=== PATIENT | female | born 1945 | race Caucasian/White ===

== ENCOUNTER → 2019-07-08 06:21 | Outpatient (CLI) | payer MEDICARE, OTHER, SELFPAY ==
--- NOTE | 2019-07-08 06:40 | MRI_ITS ---
STUDY: MRI LUMBAR SPINE WITHOUT CONTRAST REASON FOR EXAM: Female, 74 years old. Low back pain radiating to the right leg. TECHNIQUE: Standardized fat and water weighted pulse sequences were obtained in the sagittal and axial planes. Coronal T1-weighted imaging was performed. COMPARISON: None. FINDINGS: Exaggerated lumbar lordosis. Levoscoliosis. Conus medullaris terminates normally at the T12-L1 level. Transitional lumbosacral anatomy with rudimentary disc at the S1-2 level (for the sake of labeling). No acute fracture, dislocation or osseous destruction. T11 hemangioma. L4 hemangioma. T12-L1 (sagittal images only): Normal endplates. Disc desiccation. Facet joint arthrosis. Normal central canal and bilateral lateral recesses. Normal bilateral intervertebral neural foramina. L1-2 (sagittal images only): Moderate endplate spondylosis. Disc bulge/osteophyte complex with mild central canal narrowing. Facet joint arthrosis. Normal bilateral lateral recesses. Neural femoral narrowing without impingement. Grade 1 spondylolisthesis. L2-3: Moderate endplate spondylosis. Disc bulge/osteophyte complex with mild central canal narrowing. Facet joint arthrosis. Right lateral recess narrowing without impingement. Neural foramina narrowing without impingement. Grade 1 spondylolisthesis. L3-4: Moderate end plate spondylosis. Minimal posterior osseous ridging without central canal narrowing. Facet joint arthrosis. Normal central canal and bilateral lateral recesses. Neural foraminal narrowing without impingement. L4-5: Moderate endplate spondylosis with degenerative/reactive edema. Disc bulge/uncovering with severe central canal narrowing. Facet joint arthrosis. Bilateral lateral recess narrowing with impingement. Neural foramina narrowing with impingement on the right. Vacuum phenomenon. L5-S1: Mild/moderate endplate spondylosis. Disc bulge/uncovering with moderate/severe central canal narrowing. Facet joint arthrosis. Bilateral lateral recess narrowing with impingement, left greater than right. Neural foraminal narrowing with impingement on the left. Vacuum phenomenon. Paraspinal muscle atrophy. Normal aorta. Normal retroperitoneum. MRI/Spine Lumbar (Routine) IMPRESSION: Extensive multilevel intervertebral disc disease with severe central canal narrowing at L4-5 and L5-S1 Multilevel neuroforamina narrowing with impingement of the right L4 and left L5 nerve roots Multilevel lateral recess narrowing with impingement of the bilateral descending L5 and S1 nerve roots Multilevel moderate/severe osteoarthritis with endplate spondylosis and facet joint arthrosis Multilevel grade 1 spondylolisthesis with exaggerated lumbar lordosis and levoscoliosis Transitional lumbosacral anatomy with rudimentary S1-2 disc Electronically Signed: Cory Wilson DO at 10:57 EDT Tel , Service support ,
== END ==
PROVIDERS: Family Provider Physician Assistant; PCP Physician Assistant; Referring Provider Physician Assistant; Visit Provider Physician Assistant
DX: M54.40 Lumbago with sciatica, unspecified side (principal); R20.0 Anesthesia of skin
CPT/HCPCS: 72148

== ENCOUNTER → 2019-10-22 10:05 | Outpatient (CLI) | payer MEDICARE, OTHER, SELFPAY ==
--- NOTE | 2019-10-22 10:20 | MRI_ITS ---
STUDY: MRI CERVICAL SPINE WITHOUT CONTRAST REASON FOR EXAM: Female, 74 years old. arthritis with myelopathy -- pre op scan for lumbar surgery, no neck pain or upper extremity radicuopathy, pain low back and rt leg. TECHNIQUE: Standardized fat and water weighted pulse sequences were obtained in the sagittal and axial planes. COMPARISON: None FINDINGS: Normal foramen magnum and brainstem-cervical cord junction. Normal craniovertebral junction. Normal cervical lordosis. C2-3: There is severe disc space narrowing and endplates spondylosis. There is mild disc osteophyte complex and dorsal ligamentous buckling with mild central canal stenosis. Uncovertebral and facet arthropathy with minimal right and mild left foraminal stenosis C3-4: There is moderate disc space narrowing and endplates spondylosis. Minimal retrolisthesis with disc osteophyte complex and dorsal ligamentous buckling with moderate central canal stenosis. Uncovertebral facet arthropathy with moderate right and moderate left foraminal stenosis C4-5: There is mild disc space narrowing and endplates spondylosis. Minimal disc osteophyte complex without significant central canal stenosis. Uncovertebral and facet adenopathy with severe right and moderate left foraminal stenosis. C5-6: There is mild disc space narrowing and endplates spondylosis. There is grade 1 anterolisthesis mild disc osteophyte complex and dorsal ligamentous buckling with moderate central canal stenosis. Uncovertebral arthropathy and facet with moderate right and mild left foraminal stenosis. C6-7: There is moderate disc space narrowing and endplates spondylosis. Mild disc osteophyte complex with mild central stenosis. Uncovertebral arthropathy with moderate right and mild left foraminal stenosis. C7-T1: There is moderate disc space narrowing and endplates spondylosis. Mild disc osteophyte complex with mild central canal stenosis. Uncovertebral arthropathy with moderate right and minimal left foraminal stenosis. Normal cervical cord. MRI/Spine Cervical (Routine) IMPRESSION: Moderate/severe multilevel degenerative changes. Electronically Signed: Joey Shafer MD at 11:10 EST Tel , Service support ,
== END ==
PROVIDERS: Family Provider Physician Assistant; PCP Physician Assistant
DX: M47.12 Other spondylosis with myelopathy, cervical region (principal); M54.9 Dorsalgia, unspecified
CPT/HCPCS: 72141